=== PATIENT | male | born 1950 | race Caucasian/White ===

== ENCOUNTER 2021-01-23 15:41 | Emergency (ER) | payer OTHER, SELFPAY ==
[2021-01-23 15:53] VITALS: BP 121/75; PULSE 89; RESP 12; O2SAT 95; BMI 27.9
--- NOTE | 2021-01-23 16:09 | ED.LOWEXIN ---
HPI - Extremity Injury (Lower) General Chief Complaint: Extremity Injury, Lower Stated Complaint: bilateral feet swelling, hx of DVT Time Seen by Provider: 01/23/21 15:58 History of Present Illness HPI Narrative: Patient is a 71-year-old male with a history of rheumatoid arthritis. He is on biologics for this and is followed by a disbursing officer. For the past week he has had bilateral with left being greater than right feet swelling. No specific trauma. No chest pain. No shortness of breath. He did have a DVT in his left lower extremity after her have an Achilles tendon injury. He is not on anticoagulation I was several years ago. No skin changes. He is visiting the local area. And decided to come in for evaluation to make sure that it was not a blood clot. Review of Systems Constitutional Constitutional: Denies fever(s) Eyes Eyes: Reports system reviewed and no additional complaints, except as documented ENT Ears, Nose, Mouth, and Throat: Reports system reviewed and no additional complaints, except as documented Cardiovascular Cardiovascular: Denies chest pain and Denies dyspnea Respiratory Respiratory: Denies dyspnea Gastrointestinal Gastrointestinal: Denies abdominal pain Musculoskeletal Musculoskeletal: Reports as per HPI Integumentary/Breasts Skin/Breast: Denies rash Neurologic Neurologic: Reports system reviewed and no additional complaints, except as documented Hematologic/Lymphatic On Anticoagulants: No Patient History Medical History DVT (deep venous thrombosis) Rheumatoid arthritis Social History marital status: lives independently: Yes Exam Initial Vital Signs Initial Vital Signs: Vital Signs Pulse Rate 89 01/23/21 15:53 Respiratory Rate 12 01/23/21 15:53 Blood Pressure 121/75 01/23/21 15:53 Pulse Oximetry 95 01/23/21 15:53 Const General: cooperative and comfortable HENMT Head: normal to inspection and normocephalic Eyes General: appearance normal, both eyes and all related structures Resp Effort & Inspection: normal respiratory effort Cardio Rate: regular rate Pulses: dorsalis pedis present bilaterally Skin General: no rashes or lesions noted Neuro General: patient alert, patient awake and patient oriented x3 Sensory Exam: no sensory deficits noted Extrem Other: Patient's hands are consistent with rheumatoid arthritis. He does have bilateral ankle swelling and foot swelling. There is no redness over the area. Psych Appearance: grossly normal and well kempt Scores Wells' Criteria for DVT Active Cancer (Treatment within 6 months): No Bedridden recently >3 days or major surgery within 4 weeks: No Calf Swelling >3cm compared to other leg: No Collateral (nonvericose) superficial veins present: No Entire leg swollen: No Localized tenderness along the deep vein system: No Pitting edema, confined to symtomatic leg: No Paralysis, paresis, or recent plaster immobilization of ext: No Previously documented DVT: No Alternative dx to DVT as likely or more likely: Yes Wells' criteria for DVT: -2 Course Orders Ordered: ED Orders 01/23/21 16:23 Basic Metabolic Panel Stat C-Reactive Protein Quant Stat Complete Blood Count AUTO DIFF Stat Erythrocyte Sedimentation Rate Stat Vital Signs Vital signs: Vital Signs - 8 hr 01/23/21 15:53 Pulse Rate 89 Respiratory Rate 12 Blood Pressure 121/75 Pulse Oximetry 95 MDM - Extremity Injury (Lower) Lab Data Attestation: I reviewed the patient's lab results. Result diagrams: 01/23/21 16:23 01/23/21 16:23 Labs: Lab Results 01/23/21 01/23/21 01/23/21 Range/Units 16:23 16:23 16:23 WBC 4.0 L (4.5-11.0) X10^3/uL RBC 5.61 (4.5-5.9) X10^6/uL Hgb 14.2 (13.5-17.5) g/dL Hct 44.4 (41-53) % MCV 79.2 L (80-100) fL MCH 25.4 L (26-34) PG MCHC 32.0 (30-36) % RDW 18.2 H (11.6-14.8) % Plt Count 168 (150-400) X10^3/uL Neut % (Auto) 29.8 L (50-75) % Lymph % (Auto) 57.5 H (25-40) % [place] % (Auto) 10.9 (3-14) % Eos % (Auto) 1.4 L (2-4) % Baso % (Auto) 0.4 (0-2) % Neut # (Auto) 1200 L (6066-0596) /uL Lymph # (Auto) 2300 (6210-4248) /uL [place] # (Auto) 400 (0-900) /uL Eos # (Auto) 100 (0-450) /uL Baso # (Auto) 0 (0-100) /uL ESR 2 (0-15) MM/HR Sodium 137 (137-145) mmol/L Potassium 4.2 (3.4-5.1) mmol/L Chloride 108 H (98-107) mmol/L Carbon Dioxide 26 (22-32) mmol/L BUN 18 (9-20) mg/dL Creatinine 1.02 (0.66-1.25) mg/dL Estimated GFR > 60.0 (>60) mL/min BUN/Creatinine Ratio 17.6 (6-22) Glucose 120 H (80-110) mg/dL Calcium 8.9 (8.4-10.2) mg/dL C-Reactive Protein 0.5 (<1.0) mg/dL MDM Narrative Medical decision making narrative: Patient's physical exam today is not consistent with a cellulitis. He is at low risk per Wells criteria for DVT. No concern for fracture. Does have a fairly significant history of rheumatoid arthritis and I suspect that this is the cause of his symptoms today. He is afebrile. His labs are reassuring. No indication for radiologic studies. Will have him contact his disbursing officer to discuss potentially changing any of his medications. He was given return precautions and follow-up instructions. He expressed understanding and agreement. Discharge Plan Departure Patient Disposition: Home Clinical Impression: Bilateral swelling of feet and ankles, Rheumatoid arthritis Instructions: DI for Rheumatoid Arthritis Activity Restrictions/Additional Instructions: I recommend that you continue on all of your medications as directed and I also recommend that you do make contact with your disbursing officer to schedule follow-up appointment. I have a very high suspicion that your swelling today is related to that. There does not appear to be any indication of an infection. Your exam is also not consistent with a blood clot. If the swelling worsens or you develop new symptoms please return to the emergency department for further evaluation.
[2021-01-23 17:01] LABS: BUN Creatinine Ratio 17.6 (6-22); Blood Urea Nitrogen 18 mg/dL (9-20); C-Reactive Protein Quant 0.5 mg/dL (<1.0); Calcium 8.9 mg/dL (8.4-10.2); Carbon Dioxide 26 mmol/L (22-32); Chloride 108 mmol/L (98-107); Estimated Glomerular Filt Rate > 60.0 mL/min (>60); Glucose 120 mg/dL (80-110); HEMOLYSIS < 15 (0-50); Potassium 4.2 mmol/L (3.4-5.1); Sodium 137 mmol/L (137-145)
[2021-01-23 17:15] LABS: Erythrocyte Sedimentation Rate 2 MM/HR (0-15)
[2021-01-23 17:34] LABS: Add Manual Diff / Slide Review NO; Basophils Absolute Auto 0 /uL (0-100); Basophils Percent Auto 0.4 % (0-2); Eosinophils Absolute Auto 100 /uL (0-450); Eosinophils Percent Auto 1.4 % (2-4); Hematocrit 44.4 % (41-53); Hemoglobin 14.2 g/dL (13.5-17.5); Lymphocytes Absolute Auto 2300 /uL (1100-4500); Lymphocytes Percent Auto 57.5 % (25-40); Mean Corpuscular Hemoglobin 25.4 PG (26-34); Mean Corpuscular Volume 79.2 fL (80-100); Monocytes Absolute Auto 400 /uL (0-900); Monocytes Percent Auto 10.9 % (3-14); Neutrophils Absolute Auto 1200 /uL (1500-7000); Neutrophils Percent Auto 29.8 % (50-75); Platelet Count 168 X10^3/uL (150-400); Red Blood Cell Count 5.61 X10^6/uL (4.5-5.9); Red Cell Distribution Width 18.2 % (11.6-14.8)
[2021-01-23 18:00] VITALS: BP 135/80; PULSE 84; RESP 16; O2SAT 99
== END 2021-01-23 18:01 | disposition home or self-care (01) ==
PROVIDERS: Emergency Provider Emergency Medicine
DX: R22.43 Localized swelling, mass and lump, lower limb, bilateral (principal); M06.9 Rheumatoid arthritis, unspecified
CPT/HCPCS: 36415; 80048; 85025; 85651; 86140; 99281; 99283